=== PATIENT | female | born 1955 | race Caucasian/White ===

== ENCOUNTER 2021-12-05 12:59 | Observation (INO) | payer MEDICARE, BC, OTHER ==
[~2021-12-05] VITALS: Ht 160 cm; Wt 54.0 kg
--- NOTE | 2021-12-05 13:40 | NUR ---
PATIENT ESCORTED TO ROOM AND CONNECTED TO MONITOR. NO ACUTE DISTRESS. STEADY EVEN GAIT. MD NOTIFIED OF PATIENT STATUS.
--- NOTE | 2021-12-05 14:09 | NUR ---
PT AMBULATORY TO ED BATHROOM WITH STEADY GAIT.
--- NOTE | 2021-12-05 14:18 | NUR ---
PT INFORMS THIS RN THAT SHE HAD A LOOSE STOOL AND THINKS THERE IS BLOOD IN IT. TO OBSERVATION, SOME UNDIGETED FOOD PRESENT IN STOOL AND PT WITH SOME LIGHT RED/PINK DISCHARGE IN PAD. DR ESPAÑA NOTIFIED. PT UNABLE TO PROVIDE URINE SAMPLE OF YET.
[2021-12-05 14:21] LABS: HEMATOCRIT 43.4 % (37.0-47.0); HEMOGLOBIN 14.1 g/dl (12.0-16.0); IMMATURE GRANULOCYTES 0.3 % (0.0-5.0); MEAN CELL VOLUME 91.6 fL CALC (80.0-100.0); MEAN CORPUSCULAR HGB 29.7 pG CALC (26.0-32.0); MEAN CORPUSCULAR HGB CONC 32.5 g/dL CAL (32.0-36.0); NEUT# 6.17 thou/uL (2.00-7.15); RED BLOOD COUNT 4.74 mill/uL (4.20-5.60); RED CELL DISTRI WIDTH 12.7 % (11.5-15.5)
[2021-12-05 14:41] LABS: ALBUMIN 4.5 g/dL (3.2-5.0); ALKALINE PHOSPHATASE 109 u/l (38-126); ANION GAP 12 (6-22 (CALC)); BILIRUBIN, TOTAL 0.5 mg/dL (0.0-1.4); BUN 23 mg/dL (8-23); BUN/CREATININE RATIO 28 (12-20 (CALC)); CARBON DIOXIDE 30 mmol/l (22-30); CHLORIDE 102 mmol/l (95-108); CREATININE 0.8 mg/dL (0.5-1.0); GFR > 60 ML/MIN (>=60 (CALC)); GFR FOR AFR.AMER. > 60 ML/MIN (>=60 (CALC)); LIPASE 146 u/l (23-300); POTASSIUM 4.2 mmol/l (3.5-5.1); SGOT/AST 47 u/l (9-36); SODIUM 139 mmol/l (137-146); TOTAL PROTEIN 8.4 g/dL (6.3-8.2)
[2021-12-05 14:42] LABS: ACT PARTIAL THROMBO TIME 20.1 SECONDS (20.0-32.5); PROTHROMBIN TIME 10.4 SECONDS (9.0-12.5)
--- NOTE | 2021-12-05 15:15 | NUR ---
PT STABLE, AT THE BEDSIDE. WILL CONTINUE TO MONITOR.
--- NOTE | 2021-12-05 15:40 | NUR ---
DR ESPAÑA IN WITH RN TO DO RECTAL EXAM.
--- NOTE | 2021-12-05 16:23 | NUR ---
PT BACK FROM IMAGING VIA WHEELCHAIR IN STABLE CONDITION.
[2021-12-05] MEDS ORDERED: CALCIUM600 M1 PO (16:37)
[2021-12-05] MEDS ORDERED: KAPSPARGO SPRIN25 MG (16:37)
[2021-12-05] MEDS ORDERED: MULTIVITAMIN1 TA1 (16:39)
[2021-12-05] MEDS ORDERED: VITAMIN D31000 UNI1 PO (16:39)
[2021-12-05] MEDS ORDERED: IVERMECTIN3 MG (16:39)
--- NOTE | 2021-12-05 17:20 | NUR ---
PT STANDS TO WALK TO BATHROOM AND HAS BLOOD THAT RUNS TO THE FLOOR-NO UNDERGARMENTS ON . PT DENIE ANY PAIN. PT PROVIDED WITH PAD FOR UNDERWEAR. ASSISTED BACK TO BED. PT STABLE WITH CALL LIGHT IN REACH.
[2021-12-05 17:32] LABS: URINE BILIRUBIN - DIPSTICK NEGATIVE (NEGATIVE); URINE BLOOD DIPSTICK NEGATIVE (NEGATIVE); URINE COLOR YELLOW; URINE GLUCOSE - DIPSTICK NEGATIVE (NEGATIVE); URINE KETONE NEGATIVE (NEGATIVE); URINE LEUK ESTERASE NEGATIVE (NEGATIVE); URINE PROTEIN - DIPSTICK NEGATIVE (NEG-TRACE); URINE SPECIFIC GRAVITY <=1.005; URINE UROBILINOGEN - DIPSTICK 0.2 E.U./dL (0.2)
[2021-12-05 17:35] LABS: URINE NITRITE - DIPSTICK NEGATIVE (Negative)
--- NOTE | 2021-12-05 18:00 | NUR ---
SB[facility] REPORT GIVEN TO [facility]
--- NOTE | 2021-12-05 18:33 | NUR ---
PT TAKEN TO MED/SURG VIA STRETCHER WITH TELE IN PLACE. PT STABLE AT THIS TIME. PT'S BELONGINGS AND PAPERWORK HANDED OFF TO RYDER GÓMEZ.
[2021-12-05 19:00] VITALS: BP 128/67
[2021-12-06] VITALS: BP 115/55
[2021-12-06 04:00] VITALS: BP 114/55
[2021-12-06 06:17] LABS: HEMATOCRIT 41.9 % (37.0-47.0); HEMOGLOBIN 13.9 g/dl (12.0-16.0); IMMATURE GRANULOCYTES 0.1 % (0.0-5.0); MEAN CELL VOLUME 91.1 fL CALC (80.0-100.0); MEAN CORPUSCULAR HGB 30.2 pG CALC (26.0-32.0); MEAN CORPUSCULAR HGB CONC 33.2 g/dL CAL (32.0-36.0); NEUT# 8.06 thou/uL (2.00-7.15); RED BLOOD COUNT 4.6 mill/uL (4.20-5.60); RED CELL DISTRI WIDTH 12.9 % (11.5-15.5)
[2021-12-06 06:24] LABS: ALKALINE PHOSPHATASE 103 u/l (38-126); ANION GAP 13 (6-22 (CALC)); BILIRUBIN, TOTAL 0.9 mg/dL (0.0-1.4); BUN 14 mg/dL (8-23); BUN/CREATININE RATIO 21 (12-20 (CALC)); CARBON DIOXIDE 23 mmol/l (22-30); CHLORIDE 105 mmol/l (95-108); CREATININE 0.7 mg/dL (0.5-1.0); GFR > 60 ML/MIN (>=60 (CALC)); GFR FOR AFR.AMER. > 60 ML/MIN (>=60 (CALC)); POTASSIUM 4.1 mmol/l (3.5-5.1); SGOT/AST 30 u/l (9-36); SODIUM 137 mmol/l (137-146); TOTAL PROTEIN 7.4 g/dL (6.3-8.2)
[2021-12-06 08:30] VITALS: BP 133/56
--- NOTE | 2021-12-06 08:45 | NUR ---
PT RESTING IN BED. CLEAR LUNG PILLAI UPON AUSCULTATION. NO DISTRESS NOTED. ACTIVE BOWEL SOUNDS X4 QUADRATNS. PT DENIES PAIN AT THE MOMENT. CALL LIGHT WITHIN REACH.
--- NOTE | 2021-12-06 10:09 | NUR ---
A NGUYEN RT AT BEDSIDE TO COMPLETE EKG. ST WITH A RATE OF 105 BPM. PT DENIES ANY CP OR PALPITATIONS. REPORTS TAKING METOPROLOL 37.5 MG DAILY IN AM. NO OTHER NEEDS AT THIS TIME. CALL LIGHT WITHIN REACH.
[2021-12-06 10:20] VITALS: BP 122/60
--- NOTE | 2021-12-06 12:30 | NUR ---
PT SITTING IN BED TALKING ON THE PHONE. PT ASKED ABOUT THE TIME SHE WILL BE DISCHARGE. PT DENIES PAIN AT THE MOMENT. CALL LIGHT WITHIN REACH.
--- NOTE | 2021-12-06 12:51 | NUR ---
DR MENDOZA AT BEDSIDE DISCUSSING POC
== END 2021-12-06 14:06 | disposition home or self-care (01) ==
LOC: ED 12:59 → ED-I 14:09 → ED 16:49 → MS2 16:50
PROVIDERS: ADMIT Internal Medicine; ATTEND Internal Medicine
DX: K92.1 Melena (principal); R55 Syncope and collapse; I10 Essential (primary) hypertension; E78.5 Hyperlipidemia, unspecified; I34.0 Nonrheumatic mitral (valve) insufficiency; Z20.822 Contact with and (suspected) exposure to COVID-19
CPT/HCPCS: Q9967

== ENCOUNTER 2022-01-01 09:52 | Day surgery (SDC) | payer MEDICARE, BC, OTHER ==
[~2022-01-01] VITALS: Ht 149.9 cm; Wt 54.4 kg
[~2022-01-01 09:52] MED LIST: BIOTIN1000 MCG PO; CALCIUM600 M1 PO; IVERMECTIN3 MG; KAPSPARGO SPRIN25 MG; MULTIVITAMIN1 TA1; ROSUVASTATIN CA10 MG PO; VITAMIN D31000 UNI1 PO; ZINC50 M1 PO
[2022-01-01 12:27] VITALS: BP 96/41
== END 2022-01-01 12:20 | disposition home or self-care (01) ==
LOC: ENDO 09:52 → ORM 12:15 → ENDO 12:20 → ORM 12:25
PROVIDERS: ATTEND Surgery
PROC: 0DJD8ZZ Inspection of Lower Intestinal Tract, Via Natural or Artificial Opening Endoscopic (ICD-10-PCS; principal; 2022-01-01)
DX: K64.8 Other hemorrhoids (principal); Q43.9 Congenital malformation of intestine, unspecified; I10 Essential (primary) hypertension; I34.0 Nonrheumatic mitral (valve) insufficiency; Z86.010 Personal history of colon polyps